=== PATIENT | female | born 1995 | race Caucasian/White ===

== ENCOUNTER 2018-01-09 01:36 | Emergency (ER) | payer BC ==
[2018-01-09 02:21] VITALS: BP 117/86
--- NOTE | 2018-01-09 02:23 | ED ---
Nya Sena Emily, scribed for Leonard Copeland MD on 01/09/18 at 0205 . Adult Trauma - HPI Summary HPI Summary: This patient is a 22 year old F [facility] [place] status post fall that occurred at 0100. Pt denies LOC after fall. The patient rates the pain 4/10 in severity. Symptoms aggravated by nothing. Symptoms alleviated by nothing. Patient reports facial bruising. Patient denies nausea. - History of Current Complaint Chief Complaint: EDHeadInjury Stated Complaint: HEAD INJURY Time Seen by Provider: 01/09/18 01:54 Hx Obtained From: Patient Mechanism of Injury: Fall Ambulatory at the Scene: Yes Loss of Consciousness: no loss of consciousness Onset/Duration: Started Hours Ago, Still Present Onset of Pain: Immediate Onset Severity: Moderate Current Severity: Moderate Pain Intensity: 4 Pain Scale Used: 0-10 Numeric Location: Head Aggravating Factor(s): Nothing Alleviating Factor(s): Nothing Associated Signs & Symptoms: Positive: Ecchymosis. Negative: Nausea/Vomiting - Allergy/Home Medications Allergies/Adverse Reactions: Allergies Allergy/AdvReac Type Severity Reaction Status Date / Time Sulfa (Sulfonamide Allergy Unknown Verified 01/09/18 01:39 Antibiotics) Reaction Details PMH/Surg Hx/FS Hx/Imm Hx Previously Healthy: No GI History: Reports: Hx Irritable Bowel Opthamlomology History: Denies: Hx Legally Blind EENT History: Denies: Hx Deafness Infectious Disease History: No Infectious Disease History: Denies: Traveled Outside the [place] in Last 30 Days - Family History Known Family History: Positive: Other - Noncontributory - Social History Occupation: Student Lives: Dormitory/Roommates Alcohol Use: Occasionally Hx Substance Use: No Substance Use Type: Reports: None Hx Tobacco Use: No Smoking Status (MU): Never Smoked Tobacco Review of Systems Negative: Vomiting, Nausea Positive: Bruising Negative: Syncope All Other Systems Reviewed And Are Negative: Yes Physical Exam - Summary Physical Exam Summary: Appearance: Well appearing, no pain distress Skin: warm, dry, reflects adequate perfusion, 3 cm right forehead hematoma Head/face: normal Eyes: EOMI, ALAN ENT: normal, no blood behind bilateral TM Neck: supple, non-tender Respiratory: CTA, breath sounds present Cardiovascular: RRR, pulses symmetrical Abdomen: non-tender, soft Bowel: present Musculoskeletal: normal, strength/ROM intact Neuro: normal, sensory motor intact, A&Ox3 Triage Information Reviewed: Yes Vital Signs On Initial Exam: Initial Vitals Temp Pulse Resp BP Pulse Ox 97 F 84 16 121/94 100 01/09/18 01:40 01/09/18 01:40 01/09/18 01:40 01/09/18 01:40 01/09/18 01:40 Vital Signs Reviewed: Yes Procedures - Procedure Summary Procedure Summary: Applied a pressure dressing to forehead hematoma. Diagnostics - Vital Signs Vital Signs Temp Pulse Resp BP Pulse Ox 01/09/18 01:40 97 F 84 16 121/94 100 - Laboratory Lab Statement: Any lab studies that have been ordered have been reviewed, and results considered in the medical decision making process. Adult Trauma Course/Dx - Course Course Of Treatment: Pt with fall around midnight. No LOC. No THOMAS or concussive syndrome. Pt is most concerned with forehead hematoma. No step off felt. Pressure dressing applied at pt's urging. [place] CT rule applied and CT not indicated. No intoxication. GCS 15. No high risk criteria. Will obs at home at their discretion until 4hrs post event. - Diagnoses Differential Diagnosis/HQI/PQRI: Positive: Contusion(s) - skull fx, concussion, intracranial injury, Hematoma(s), Other Provider Diagnoses: Closed head injury without loss of consciousness, Scalp hematoma Discharge - Discharge Plan Condition: Good Disposition: HOME Patient Education Materials: Head Injury (ED), Hematoma (ED) Referrals: [facility] [Provider Group] Additional Instructions: Ice to area. Pressure dressing can be taken off in the morning. Tylenol as needed. Observe or stay awake until 4hrs after injury or ~4am. Return with vomiting, severe headache, altered consciousness or other concerns. Expect bruising in the area as discussed. Follow up with health center on Thursday if you are having any symptoms. The documentation as recorded by the Nya lópez Emily accurately reflects the service I personally performed and the decisions made by me, Leonadr Copeland MD.
== END 2018-01-09 02:20 | disposition home or self-care (01) ==
LOC: ED 01:36
DX: S09.90XA Unspecified injury of head, initial encounter (principal); S00.03XA Contusion of scalp, initial encounter; W19.XXXA Unspecified fall, initial encounter; Y92.9 Unspecified place or not applicable; Z88.2 Allergy status to sulfonamides
CPT/HCPCS: 99282